=== PATIENT | female | born 1955 | race Caucasian/White ===

== ENCOUNTER → 2017-02-25 | Outpatient (CLI) | payer OTHER ==
--- NOTE | 2017-02-25 13:07 | KCIC ---
INDICATION: Neck pain and bilateral arm pain. Pain extending into shoulders and elbows. Long-standing symptoms for years. TECHNIQUE: Sagittal T1, sagittal T2, sagittal STIR, axial T2, and axial T2 gradient sequences are provided. No comparison is available. FINDINGS: C4 and C5 are fused which appears developmental. There is no worrisome marrow lesion. There is no malalignment. There is no cord signal abnormality. The cervicomedullary junction is unremarkable. Degenerative findings at individual levels are as follows: C2-C3: There is minimal facet hypertrophy without canal or foraminal compromise. C3-C4: There is a disc osteophyte complex and shallow central protrusion. There is no canal or foraminal compromise. C4-C5: There is no canal or femoral compromise. C5-C6: There is a disc osteophyte complex and uncinate process spurring. Uncinate process spurring is greater on the right. There is buckling of ligamentum flavum. There is right lateral recess narrowing. There is no canal stenosis, midline AP diameter of the thecal sac 11 mm. There is high-grade right and [id number] left foraminal narrowing. C6-C7: Disc osteophyte complex and uncinate process spurring are mild. There is also buckling of ligamentum flavum. There is no canal stenosis. There is minimal foraminal narrowing. C7-T1: There is no canal or foraminal compromise. IMPRESSION: Degenerative changes in the cervical spine most notable at C5-C6. Electronically signed by: Eric Hebert MD (02/25/2017 1:04 PM)
--- NOTE | 2017-02-25 13:24 | KCIC ---
INDICATION: Low back pain for many years with no known injury. TECHNIQUE: Sagittal T1, sagittal T2, sagittal STIR, axial T1, and axial T2 sequences are provided. No comparison is available. There is mild motion degradation. FINDINGS: There is no malalignment. There is minimal edema in the endplates at L5-S1. There is no worrisome marrow lesion. There is diffuse disc desiccation. Disc height is mildly narrowed at L2-L3. Conus medullaris is normal in signal intensity and in position. T2 hyperintense lesion in the abdomen on the right appears to arise from the liver, is immediately adjacent to the kidney as well, probably a cyst or hemangioma measuring 9 mm. The numbering system assumes 5 lumbar type vertebral bodies. Findings by individual level are as follows: T12-L1: There is a minimal disc bulge without canal or foraminal compromise. L1-L2: There is a minimal disc bulge without canal or foraminal compromise. L1-L2: There is a diffuse disc bulge. There is minimal facet hypertrophy. There is slight lateral recess narrowing but no canal stenosis, midline AP diameter of the thecal sac is 12 mm. There is mild bilateral foraminal narrowing. L3-L4: Minimal disc bulge is noted without canal or foraminal compromise. L4-L5: Mild disc bulge and minimal facet hypertrophy are noted without canal or foraminal compromise. L5-S1: Minimal disc bulge is noted. There is a central/right central extrusion-type herniation migrating inferiorly measuring 13 mm at its base in 3 to 4 mm in height, craniocaudal extent 12 mm. This herniation has an associated annular fissure. There is facet hypertrophy. Herniation mildly contacts the right S1 nerve root with displacement. There is no foraminal compromise. 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 Electronically signed by: Eric Hebert MD (02/25/2017 1:21 PM)
== END | disposition home or self-care (01) ==
LOC: KCIC MRI 10:36
PROVIDERS: ATTEND Physician Assistant
DX: M47.892 Other spondylosis, cervical region (principal); M54.5 Low back pain
CPT/HCPCS: 72141; 72148

== ENCOUNTER → 2017-03-05 | Outpatient (CLI) | payer OTHER ==
--- NOTE | 2017-03-05 14:03 | KCIC ---
EXAM: Pelvic sonogram. HISTORY: Cervical motion tenderness. TECHNIQUE: Transabdominal and transvaginal sonographic imaging of the pelvis was performed. COMPARISON: None. FINDINGS: The uterus measures 6.8 x 3.0 x 4.4 cm. There is a 2.4 cm anterior uterine fibroid. The endometrium is heterogeneous and thickened, measuring 11 mm. The right ovary measures 1.1 x 0.7 x 1.1 cm. The left ovary measures 1.6 x 1.0 x 1.4 cm. There is normal blood flow within both ovaries. 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 There is a small amount of nonspecific pelvic free fluid. IMPRESSION: 1. Heterogeneous thickened endometrial stripe for the postmenopausal status of the patient. Tissue sampling may be indicated for definitive diagnosis. 2. 2.4 cm uterine fibroid. 3. Suspected left greater than right pelvic varices. 4. Small amount of nonspecific pelvic free fluid. Electronically signed by: Rolanda Velasquez MD (03/05/2017 2:00 PM)
== END | disposition home or self-care (01) ==
LOC: KCIC US 12:14
PROVIDERS: ATTEND Physician Assistant
DX: R10.2 Pelvic and perineal pain (principal); N95.9 Unspecified menopausal and perimenopausal disorder; D25.9 Leiomyoma of uterus, unspecified
CPT/HCPCS: 76830; 76856

== ENCOUNTER → 2017-06-06 | Outpatient (CLI) | payer OTHER ==
--- NOTE | 2017-06-06 15:53 | KCIC ---
Examination: MRI of the right wrist without contrast HISTORY: History of twisting injury to the right wrist, pain in the medial aspect COMPARISON: None available TECHNIQUE: Multiplanar, multisequence MR imaging of the right breast were performed without contrast FINDINGS: Negative bilateral densities identified In the alignment of the carpal bones grossly appears unremarkable. Mild degenerative changes identified in the carpal joints. There is mild increased signal identified in the membranous portion of the scapholunate ligament. The lunotriquetral ligament grossly appears intact Examination limited due to motion artifact Moderate degenerative changes identified in the distal radioulnar joint with small subchondral cystic changes in the medial aspect of the distal radius The visualized flexor tendons within the carpal tunnel grossly appears unremarkable There is minimal medial subluxation of the extensor carpi ulnaris in the the level of the ulnar styloid. There is mild thickened appearance of the extensor carpi ulnaris tendon with the mild increased signal in the extensor carpi ulnaris tendon just proximal to the level of the ulnar styloid extending distally up to the level of the proximal carpal row likely secondary to tendinopathy. There is mild T2 signal identified surrounding the extensor carpi ulnaris tendon with some mild trabecular edema identified in the ulnar styloid. There is increased signal identified in the plantar fibrocartilage complex and in the subsheath region of the triangular fibrocartilage complex. The visualized median nerve within the carpal tunnel, ulnar nerve within Guyon's canal grossly appears unremarkable IMPRESSION: 1. Mild thickened appearance of the extensor carpi ulnaris tendon with mild increased signal in the extensor carpi ulnaris tendon just proximal to the level of the ulnar styloid extending distally up to the level of the proximal carpal row likely secondary to tendinopathy/tendinosis. Mild edema identified surrounding the extensor carpi ulnaris tendon with some mild trabecular edema identified in the ulnar styloid, could be secondary to injury. 2. There is mild medial subluxation of the extensor carpi ulnaris in part due to positioning. 3. Mild increased signal identified in the membranous portion of the scapholunate ligament, question tear. There is mild increased signal identified in the triangular fibrocartilage and in the subsheath of the triangular fibrocartilage complex. This can be better evaluated with MR arthrogram. 4. Negative ulnar variance. Electronically signed by: Anderson David MD (06/06/2017 3:50 PM) [facility]
== END | disposition home or self-care (01) ==
LOC: KCIC MRI 14:14
PROVIDERS: ATTEND Nurse Practitioner Adult Health
DX: M24.421 Recurrent dislocation, right elbow (principal)
CPT/HCPCS: 73221

== ENCOUNTER → 2017-06-30 | Outpatient (CLI) | payer OTHER ==
[~2017-06-30] MED LIST: CELE100C PO; GADOBUTROL 7.5 MMOL/7.5 ML VIAL INT ART ONE; IOHEXOL 300 MG/ML 50 ML VIAL. INT ART ONE; LIDOCAINE 1% Multi-Dose 20 ML VIAL. ID ONE
--- NOTE | 2017-06-30 16:46 | KCIC ---
MR arthrogram of the right wrist Indication: Pain. Twisting injury 4-6 weeks ago. Pain with movement. Technique: Intra-articular contrast injected by different radiologist, who will dictate that procedure separately. The standard sequences were obtained. Findings: There is mild motion degradation despite repeating sequences. Triangular fibrocartilage: There is some distortion and increased signal within the triangular fibrocartilage, similar to the prior study of June 06. No through and through rupture is seen. There are degenerative changes at the distal radioulnar joint with subcortical cyst of the radius at the sigmoid notch. There is ulnar minus variance. Extensor carpi ulnaris tendon: Mild extensor carpi ulnaris tendinosis. Mild surrounding tendon sheath fluid. Other extensor compartments: Intact Flexor tendons: Intact Carpal tunnel and median nerve: Unremarkable Scapholunate ligament and lunotriquetral ligament: There is a small pinpoint through and through contrast filled defect of the membranous component of the scapholunate ligament measuring less than 1 mm. The anterior and posterior bands of the scapholunate ligament are intact. No evidence of lunotriquetral ligament tear. Bones: No acute fracture or aggressive bone destruction is identified. Impression: 1. Small full-thickness tear or perforation of the membranous component of the scapholunate ligament. 2. Distortion and signal at the triangular fibrocartilage is compatible with degeneration, without evidence of a through and through tear. 3. Extensor carpi ulnaris tenosynovitis. Electronically signed by: Tarun Lloyd MD (06/30/2017 4:42 PM) [email or web address]
--- NOTE | 2017-06-30 16:50 | KCIC ---
PROCEDURE Right?wrist injection using fluoroscopic guidance, prior to MR. HISTORY: Pain TECHNIQUE The procedure was explained to the patient as were potential risks, including among others infection, bleeding or allergic reaction. All questions were answered. Informed written consent was obtained. The wrist was prepped and draped in the usual sterile manner. Following administration of local anesthetic with 1% lidocaine , a 25 gauge needle was advanced into the radiocarpal space. Following negative aspiration, 2 cc of a solution of 5cc Omnipaque-300 contrast, 5 cc 1% lidocaine, 10 cc saline, and 0.1 cc gadolinium was injected without difficulty during dynamic digital subtraction imaging. The needle was removed. Additional post exercise images were obtained. There was good hemostasis at the injection site. The patient left in stable condition without immediate complication. The patient was given postprocedural instructions, and instructed to contact us or the ER if there are any complications. During the radiocarpal injection, there was contrast accumulation into the mid carpal compartment although the direct pathway of transit was not visualized. FLUOROSCOPY TIME: 1 minute 37 seconds Electronically signed by: Tarun Lloyd MD (06/30/2017 4:46 PM) [email or web address]
== END | disposition home or self-care (01) ==
LOC: KCIC 14:09
PROVIDERS: ATTEND Nurse Practitioner Adult Health
DX: S63.501D Unspecified sprain of right wrist, subsequent encounter (principal); M65.841 Other synovitis and tenosynovitis, right hand; X58.XXXD Exposure to other specified factors, subsequent encounter
CPT/HCPCS: 73115; 73222; A9585; Q9967

== ENCOUNTER → 2018-10-12 | Outpatient (CLI) | payer OTHER ==
[~2018-10-12] MED LIST changes: -GADOBUTROL 7.5 MMOL/7.5 ML VIAL INT ART ONE; -IOHEXOL 300 MG/ML 50 ML VIAL. INT ART ONE; -LIDOCAINE 1% Multi-Dose 20 ML VIAL. ID ONE
--- NOTE | 2018-10-12 14:22 | KCIC ---
MRI Lumbar Spine without contrast History: Low back pain, low back pain for one week into the bilateral legs Technique: Multiplanar, multi sequential noncontrast MR imaging was performed of the lumbar spine. Comparison: February 25, 2017 Findings: There is mild motion degradation. There is again minimal posterior subluxation L5 relative to S1. Lumbar vertebral body stature is maintained. There is again [id number] degenerative disc disease at L2-3 and L5-S1. There is nonspecific mild heterogeneity of marrow signal. Trace edema of the anterior superior corner of L3 is likely reactive/degenerative in etiology. There is again small hemangioma of the L1 vertebral body. Conus terminates at the superior aspect of L2. There is T2 hyperintense lesion in the right upper quadrant otherwise difficult to characterize if arises from the kidney or liver about 1.1 cm in size, statistically more likely cyst. Limited characterization on this exam, there is likely [id number] left hydronephrosis. T12-L1: Neural foramina and spinal canal are adequate. L1-L2: Spinal canal and neural foramina are adequate. L2-L3: There is again disc osteophyte complex and superimposed broad bulge, mild indentation upon the ventral thecal sac somewhat greater in the far left lateral recess as seen previously, near the descending left L3 nerve root without displacement. Spinal canal and neural foramina are overall adequate. L3-L4: There is mild buckling of the ligamentum flavum and facet hypertrophic change. Neural foramina and spinal canal are adequate. L4-L5: There is mild buckling of the ligamentum flavum. There is negligible bulge. Spinal canal and neural foramina are adequate. L5-S1: There is again posterior protrusion, near the descending right S1 nerve root as seen previously with mild contact, no significant displacement. Spinal canal is overall adequate. Neural foramina are adequate. Impression: 1. Findings are similar comparing with the February 2017 exam. There is again protrusion at L5-S1 near the descending right S1 nerve root with mild contact without significant displacement. There is again broad posterior bulge at L2-3. There is no new significant lumbar spinal stenosis or neural foramina compromise. There is again mild to moderate degenerative disc disease at L2-3 and L5-S1. 2. Limited characterization on this exam, there is likely [id number] left hydronephrosis. Small cystic focus in the right upper quadrant is difficult to determine if arises from the kidney or liver although statistically more likely cyst. Electronically signed by: Doni Falk MD (10/12/2018 2:18 PM) [email or web address]
== END | disposition home or self-care (01) ==
LOC: KCIC MRI 12:53
PROVIDERS: ATTEND Physician Assistant
DX: M51.36 Other intervertebral disc degeneration, lumbar region (principal); M51.37 Other intervertebral disc degeneration, lumbosacral region; M51.27 Other intervertebral disc displacement, lumbosacral region; M25.78 Osteophyte, vertebrae
CPT/HCPCS: 72148